=== PATIENT | male | born 1985 | race Two or more races ===

== ENCOUNTER 2024-06-23 18:47 | Emergency (ER) | payer MEDICAID, SELFPAY ==
[2024-06-23 18:49] VITALS: BMI 29.0
[2024-06-23 19:06] VITALS: BP 164/97; PULSE 101; RESP 20; TEMP 36.9; O2SAT 100
--- NOTE | 2024-06-23 19:27 | EKG_ITS ---
[facility] Test Date: 2024-06-23 Pat Name: LUCINDA ROBBINS Department: Room: - Gender: Male General Operations Agent: : [id number] Requested By: Bob Oropeza Order Number: [id number] Reading MD: Bob Oropeza Measurements Intervals [place] Rate: 86 P: 14 MS: 147 QRS: -47 QRSD: 128 T: 32 QT: 304 QTc: 365 Interpretive Statements SINUS RHYTHM POSSIBLE RIGHT VENTRICULAR CONDUCTION DELAY [RSR (QR) IN V1/V2] LEFT ANTERIOR FASCICULAR BLOCK [QRS AXIS <= -45, QR IN I, RS IN II] NONSPECIFIC T-WAVE ABNORMALITY No previous ECG available for comparison /[id number]/[email or web address]/[id number].pdf
--- NOTE | 2024-06-23 19:28 | XR_ITS ---
Examination: PA lateral chest 2 views TECHNIQUE: Upright PA lateral chest 2 views Exam date and time: 20244 hours INDICATIONS: Left arm pain chest pain today FINDINGS: Normal heart size. Lungs are clear. Osseous structures are intact. IMPRESSION: No active disease
--- NOTE | 2024-06-23 19:30 | PD.EDRME ---
Rapid Medical Screening Exam RME Arrival date/time: 06/23/24 18:47 38 year old male present to ED for c/o of dizziness, for 1 month, arm pain recently I have greeted and performed a focused initial assessment of this patient. A comprehensive ED assessment and evaluation of the patient, analysis of all test results, and completion of the medical decision making process will be conducted by additional ED providers. Chief Complaint: General Adult/Misc Complain Time Seen by Provider: 06/23/24 18:58 Vital signs: Vital Signs Temperature 98.4 F 06/23/24 19:06 Pulse Rate 101 H 06/23/24 19:06 Respiratory Rate 20 06/23/24 19:06 Blood Pressure 164/97 H 06/23/24 19:06 Pulse Oximetry (%) 100 06/23/24 19:06 Oxygen Delivery Method Room Air 06/23/24 19:06
[2024-06-23 19:46] LABS: Basophils % (Auto) 0 % (0-2.5); Eosinophils # (Auto) 0.1 Thou/mm3 (0.0-0.5); Eosinophils % (Auto) 1 % (0-10); Hematocrit 41.3 % (41.0-53.0); Hemoglobin 14.5 g/dL (13.5-16.0); Immature Granulocytes % (Auto) 0 % (0-0); Immature Granulocytes Auto 0.02 Thou/mm3 (0.00-0.00); Lymphocytes # (Auto) 1.1 Thou/mm3 (1.0-4.8); Lymphocytes % (Auto) 12 % (10-50); Mean Corpuscular HGB Conc 35.1 g/dl (31.0-37.0); Mean Corpuscular Hemoglobin 29.8 pg (25.0-35.0); Mean Corpuscular Volume 85 fL (80-100); Monocytes # (Auto) 0.6 Thou/mm3 (0.0-0.8); Monocytes % (Auto) 6 % (0-12); Neutrophils # (Auto) 7.9 Thou/mm3 (1.8-7.7); Neutrophils % (Auto) 81 % (37-80); Nucleated Red Blood Cell % 0 /100 WBC (0); Platelet Count 220 Thou/mm3 (140-440); RDW Standard Deviation 37.4 fL (35.1-43.9); Red Blood Count 4.87 Miln/mm3 (4.50-5.90); White Blood Count 9.7 Thou/mm3 (3.8-10.6)
[2024-06-23 19:50] VITALS: BP 156/99; PULSE 81; RESP 18; TEMP 36.4; O2SAT 99
[2024-06-23 20:16] LABS: Alanine Aminotransferase 22 U/L (10-49); Albumin, Serum 5.1 gm/dL (3.5-5.0); Alkaline Phosphatase 53 U/L (46-116); Anion Gap 10 (7-16); Aspartate Amino Transferase 14 U/L (0-34); BUN/Creatinine Ratio 17 Ratio (12-20); Bilirubin,Total 1.3 mg/dL (0.3-1.2); Blood Urea Nitrogen 15 mg/dL (9-23); Calcium 10.2 mg/dL (8.3-10.6); Calcium (Corrected) 10.2 mg/dL (8.5-10.1); Carbon Dioxide 26.3 mMol/L (20.0-31.0); Chloride 104 mMol/L (98-107); Creatinine (Component) 0.9 mg/dL (0.6-1.3); Globulin 2.6 gm/dL (2.3-3.5); Glucose 105 mg/dL (74-106); Lipase 49 U/L (12-53); Osmolality,Calculated 280 (275-295); Potassium 4.2 mMol/L (3.4-5.1); Sodium 140 mMol/L (136-145); Total Protein 7.7 gm/dL (5.7-8.2); Troponin I < 0.002 ng/mL (0.0-0.045); eGFR > 60 See Note
--- NOTE | 2024-06-23 21:20 | EDNOTE_ITS ---
ED General RME/HPI General Chief complaint: General Adult/Misc Complain Stated complaint: NUMBNESS/TINGLING L) CHEEK/NECK/ARM, HEART RACING Time Seen by Provider: 06/23/24 18:58 Arrival date/time: 06/23/24 18:47 CC: Palpitations, left-sided facial numbness and left arm numbness HPI ongoing for the past 3 weeks. Patient states a history prior to that when patient was drinking a lot of alcohol and sleeping in late the patient is no longer drinking alcohol. Patient states he was seen by PCP was given some medications for his hypertension but no blood was drawn. Patient denies fever chills chest pain shortness of breath or difficulty breathing currently the patient is complaining of palpitations but the left-sided facial numbness has resolved. No other complaints at this time RME / HPI RME / HPI narrative: 06/23/24 18:47 38 year old male present to ED for c/o of dizziness, for 1 month, arm pain recently I have greeted and performed a focused initial assessment of this patient. A comprehensive ED assessment and evaluation of the patient, analysis of all test results, and completion of the medical decision making process will be conducted by additional ED providers. Related Data Allergies Allergy/AdvReac Type Severity Reaction Status Date / Time No Known Allergies Allergy Verified 06/23/24 18:50 Review of Systems Review of Systems Narrative Review of Systems: GEN: No fever, no chills, no weight loss EYES: No discharge, no visual changes, no pain HEENT: No ear pain, no congestion, no sore throat PULM: No shortness of breath, no cough, no congestion CV: No chest pain, no dyspnea on exertion, no palpitations GI: No nausea, no vomiting, no diarrhea, no pain, no constipation : No frequency, no urgency, no dysuria MUSC/SKEL: No joint pain, no back pain SKIN: No rash PSYCH: No hallucinations, no depression HEME/LYMPH: No easy bleeding or bruising tendencies NEURO: No weakness, no headache Past Medical History Social History SMOKING STATUS: Former smoker ED Exam Narrative Physical exam: [General: Anxious but not in any acute distress Head normocephalic HEENT: Within acceptable limits Neck is supple nontender Chest equal chest rise nontender to palpation Respiratory: Clear to auscultation no wheezes crackles or rubs CV: Rate rhythm is regular no murmurs rubs or clicks Abdomen is soft nontender no masses positive bowel sounds all 4 quadrants Back: No CVA tenderness no spinous process tenderness from cervical spine thoracic and lumbar spine Skin: Intact no petechiae rash induration ulceration or crepitus Extremities: Moving all extremity against resistance cap refill less than 2 seconds neurosensory intact Neuro: Awake alert oriented x3 Glascow coma 15 no focal deficits] Course Quality Measures none Orders Category Date Time Status EKG (ED ONLY) *Do not use* NOW Care 06/23/24 19:28 Completed EKG (ED Only) Stat Exams 06/23/24 19:27 Draft XR chest 2V Stat Exams 06/23/24 19:28 Completed CBC Stat Lab 06/23/24 19:35 Completed CMP [Comprehensive Metabolic Panel] Stat Lab 06/23/24 19:35 Completed Lipase Stat Lab 06/23/24 19:35 Completed Troponin I Stat Lab 06/23/24 19:35 Completed Vital Signs Vital signs: Vital Signs Temperature 98.4 F 06/23/24 19:06 Pulse Rate 101 H 06/23/24 19:06 Respiratory Rate 20 06/23/24 19:06 Blood Pressure 164/97 H 06/23/24 19:06 Pulse Oximetry (%) 100 06/23/24 19:06 Oxygen Delivery Method Room Air 06/23/24 19:06 [facility] Patient data External records reviewed:: [facility] previous records Clinical information provided by:: patient Social determinants that could affect healthcare access:: none Patient has the following chronic illnesses:: Hypertension How is presenting disease/condition affected by chronic disease/condition?: u neffected by Evaluation data The following diagnostics were reviewed and interpreted by me:: lab results, radiology exam(s) and EKG tracing(s) Lab and/or radiology exams considered but not ordered:: EKG performed at 1930 shows a ventricular rate of 86 [place] interval 147 QRS of 128 QTc of 348 this is sinus rhythm nonspecific ST segment changes no old EKG for comparison. Chest x-ray is negative for any acute finding as interpreted by me by read by radiology CBC shows no acute leukocytosis anemia thrombocytopenia CMP shows no electrolyte imbalances renal impairment transaminitis or T. bili is mildly elevated at 1.3. Troponin is negative Interpretation Summary: Reviewed the laboratory results and EKG show there is no acute finding requires emergent intervention however during the interview it was determined that the patient was a heavy alcohol history and last night he drank 3 drinks after having been sober for 4 months I suspect this is all related to an anxiety driven in addition to minor withdrawal or hangover from the alcohol he drank. Patient strongly advised not to drink any more alcohol, and follow-up with his primary care doctor. If there is a worsening of symptoms he can return to the emergency room after seeing his primary care doctor. Medications Medications considered but not ordered:: None Medication administrations:: None Consultations Consultation(s) initiated? (list below): No Diagnosis Differential Diagnosis ED Complaint MDM: Anxiety alcohol withdrawal [facility] [place] Most likely diagnosis given after review of the tests above:: Palpitations anxiety Admission Indicated Admission indicated?: not indicated Explain why admission is indicated or not indicated:: Stable for outpatient follow-up Admission Request Was there a request for admission?: No Disposition Plan Disposition Plan: Discharge Discharge Attestation Discharge Attestation: The patient and all family members were given an opportunity to ask questions and understood the discharge instructions. Discharge instructions specifically effects, indications for sooner follow up or return to the emergency department, and the expected course of current diagnosis. Patient condition: Stable Medical Decision Making Differential Diagnosis Differential Diagnosis: Anxiety alcohol withdrawal [facility] [place] Lab Data 06/23/24 19:35 06/23/24 19:35 Labs: Lab Results 06/23/24 Range/Units 19:35 WBC 9.7 (3.8-10.6) Thou/mm3 RBC 4.87 (4.50-5.90) Miln/mm3 Hgb 14.5 (13.5-16.0) g/dL Hct 41.3 (41.0-53.0) % MCV 85 (80-100) fL MCH 29.8 (25.0-35.0) pg MCHC 35.1 (31.0-37.0) g/dl RDW Std Deviation 37.4 (35.1-43.9) fL Plt Count 220 (140-440) Thou/mm3 Neut % (Auto) 81 H (37-80) % Lymph % (Auto) 12 (10-50) % [place] % (Auto) 6 (0-12) % Eos % (Auto) 1 (0-10) % Baso % (Auto) 0 (0-2.5) % Neut # (Auto) 7.9 H (1.8-7.7) Thou/mm3 Lymph # (Auto) 1.1 (1.0-4.8) Thou/mm3 [place] # (Auto) 0.6 (0.0-0.8) Thou/mm3 Eos # (Auto) 0.1 (0.0-0.5) Thou/mm3 Baso # (Auto) 0.0 (0.0-0.2) Thou/mm3 Immature Gran # (Auto) 0.02 H (0.00-0.00) Thou/mm3 Absolute Nucleated RBC 0.00 (0.00-0.00) Thou/mm3 Immature Gran % 0 (0-0) % Nucleated RBC % 0 (0) /100 WBC Sodium 140 (136-145) mMol/L Potassium 4.2 (3.4-5.1) mMol/L Chloride 104 (98-107) mMol/L Carbon Dioxide 26.3 (20.0-31.0) mMol/L Anion Gap 10 (7-16) BUN 15 (9-23) mg/dL Creatinine 0.9 (0.6-1.3) mg/dL Estim Creat Clear Calc 137.0 (>60) mL/min eGFR > 60 (60 - ) See Note BUN/Creatinine Ratio 17 (12-20) Ratio Glucose 105 (74-106) mg/dL Calculated Osmolality 280 (275-295) Calcium 10.2 (8.3-10.6) mg/dL Corrected Calcium 10.2 H (8.5-10.1) mg/dL Total Bilirubin 1.3 H (0.3-1.2) mg/dL AST 14 (0-34) U/L ALT 22 (10-49) U/L Alkaline Phosphatase 53 (46-116) U/L Troponin I < 0.002 (0.0-0.045) ng/mL Total Protein 7.7 (5.7-8.2) gm/dL Albumin 5.1 H (3.5-5.0) gm/dL Globulin 2.6 (2.3-3.5) gm/dL Albumin/Globulin Ratio 2.0 (1.2-2.2) Lipase 49 (12-53) U/L Discharge Plan Plan Patient Disposition: HOME (Self Care) Patient condition on transfer: Stable Prescriptions/Referrals Referrals: Angella Davis MD [Primary Care Provider] - In 1 week Problem List Clinical Impression: Palpitations Patient/Caregiver Discharge Instructions Education Materials: ED Palpitations Print Language: [place]an Stand Alone Forms: Gillian Award Info., Work/School Release, Patient Portal Info Letter PA/LOGISTICS ADMINISTRATOR Supervising Physician PA/LOGISTICS ADMINISTRATOR Supervising Physician: Juan Gee ENP
[2024-06-23 21:23] VITALS: BP 155/94; PULSE 92; RESP 18; TEMP 36.7; O2SAT 97
== END 2024-06-23 21:38 | disposition home or self-care (01) ==
PROVIDERS: Physician Assistant; Emergency Provider Emergency Medicine; PCP Family Medicine
DX: R00.2 Palpitations (principal); M79.602 Pain in left arm; R07.9 Chest pain, unspecified; I44.4 Left anterior fascicular block; I10 Essential (primary) hypertension; Z87.891 Personal history of nicotine dependence
CPT/HCPCS: 36415; 71046; 80053; 83690; 84484; 85025; 93005; 99283